=== PATIENT | female | born 1975 | race Caucasian/White ===

== ENCOUNTER 2019-12-29 16:35 | Observation (INO) | payer BC ==
[~2019-12-29] VITALS: Ht 167.6 cm; Wt 84.1 kg
[2019-12-29] MEDS ORDERED: CALCIUM (16:38)
[2019-12-29] MEDS ORDERED: ASPIRIN81 MG PO (16:38)
[2019-12-29] MEDS ORDERED: ZOLOFT50 MG PO (16:39)
[2019-12-29 17:02] LABS: BASOPHILS 0.3 % (0-2); EOSINOPHILS 3.5 % (0-7); HEMATOCRIT 43.8 % (36.0-48.0); IMMATURE GRANULOCYTES 0.5 % (0-5); LYMPHOCYTES 20.7 % (15-50); MCH 32.7 pg (26.0-34.0); MCV 102.3 fL (80.0-100.0); MEAN PLATELET VOLUME 9.2 fL (7.4-10.4); MONOCYTES 6.9 % (2-11); NEUTROPHILS 68.1 % (40-80); PLATELET COUNT 188 10x3/uL (130-400); RBC 4.28 10x6/uL (4.00-5.40); RDW 13.8 % (11.5-14.5); WBC 7.9 10x3/uL (4.8-10.8)
[2019-12-29 17:16] LABS: APTT 24.9 SECONDS (22.8-39.4); INR 0.93 (0.85-1.17); PROTIME 12.4 SECONDS (11.6-15.0)
[2019-12-29 17:17] LABS: CALC OSMOLALITY 272 mosm/kg (275-300); CALCIUM 8.6 mg/dL (8.5-10.1); CARBON DIOXIDE 24.7 mmol/L (21.0-32.0); CHLORIDE - SERUM 102 mmol/L (98-107); CREATININE - SERUM 0.8 mg/dL (0.6-1.3); GLUCOSE 107 mg/dL (74-106); POTASSIUM - SERUM 3.7 mmol/L (3.5-5.1); SODIUM 137 mmol/L (136-145); UREA NITROGEN 10 mg/dL (7-18); eGFR NON AFRICAN AMERICAN 82 mL/min (90-120)
[2019-12-29 17:23] LABS: ALBUMIN 3.6 g/dL (3.4-5.0); ALKALINE PHOSPHATASE 42 U/L (30-120); ALT (SGPT) 25 U/L (10-68); BILIRUBIN - TOTAL 0.24 mg/dL (0.2-1.3); PROTEIN - SERUM 6.5 g/dL (6.4-8.2)
--- NOTE | 2019-12-29 19:42 | NUR ---
PATIENT RESTING IN BED WITH AT BEDSIDE. PLACED ICE PACK TO LEFT ANKLE. PATIENT REQUESTED PAIN MEDS WHEN AVAILABLE AND DENIES OTHER NEEDS AT THIS TIME. BED IN LOWEST POSITION AND CALL LIGHT WITHIN REACH. ENCOURAGED THE PATIENT TO CALL IF SHE HAS NEEDS. WILL CONTINUE TO MONITOR.
[2019-12-30 02:06] VITALS: Ht 167.6 cm; Wt 84.1 kg
[2019-12-30] MEDS ORDERED: MERIBIN5 MG PO (02:15)
[2019-12-30 03:24] VITALS: BP 94/38
[2019-12-30 05:40] LABS: BASOPHILS 0.1 % (0-2); EOSINOPHILS 3.4 % (0-7); HEMATOCRIT 43.4 % (36.0-48.0); HEMOGLOBIN 13.8 g/dL (12-16); IMMATURE GRANULOCYTES 0.5 % (0-5); LYMPHOCYTES 16.6 % (15-50); MCH 33.1 pg (26.0-34.0); MCHC 31.8 g/dL (31.0-37.0); MCV 104.1 fL (80.0-100.0); MEAN PLATELET VOLUME 9.9 fL (7.4-10.4); MONOCYTES 9.5 % (2-11); NEUTROPHILS 69.9 % (40-80); PLATELET COUNT 201 10x3/uL (130-400); RBC 4.17 10x6/uL (4.00-5.40); RDW 13.9 % (11.5-14.5); WBC 9.5 10x3/uL (4.8-10.8)
[2019-12-30 06:02] LABS: ALBUMIN 3.2 g/dL (3.4-5.0); ANION GAP 12.3 mmol/L (8-16); BILIRUBIN - TOTAL 0.17 mg/dL (0.2-1.3); CALCIUM 7.6 mg/dL (8.5-10.1); CARBON DIOXIDE 25.8 mmol/L (21.0-32.0); CREATININE - SERUM 0.9 mg/dL (0.6-1.3); POTASSIUM - SERUM 4.1 mmol/L (3.5-5.1); PROTEIN - SERUM 5.9 g/dL (6.4-8.2)
[2019-12-30 06:40] VITALS: BP 147/93
[2019-12-30 08:49] LABS: HCG URINE NEGATIVE (NEGATIVE)
[2019-12-30 09:22] VITALS: BP 128/90
[2019-12-30] MEDS ORDERED: PERCOCET 10-321 EAC1 PO (10:05)
[2019-12-30] MEDS ORDERED: ZOFRAN ODT4 MG/UDTAB PO (10:06)
[2019-12-30] MEDS ORDERED: BAYER CHEWABLE81 MG PO (10:06)
[2019-12-30] MEDS ORDERED: VISTARIL50 MG PO (10:06)
[2019-12-30 11:03] VITALS: BP 141/94
--- NOTE | 2019-12-30 11:09 | OP ---
PATIENT NAME: EZ HEADLEY MEDICAL RECORD: [id number] :73 LOCATION:[id number] ADMISSION DATE:12/29/19 SURGEON: SHREYAS SHEEHAN DO DATE OF OPERATION: 12/30/2019 PROCEDURE PERFORMED: Left ankle open reduction internal fixation. PREOPERATIVE DIAGNOSIS: Left ankle fracture. POSTOPERATIVE DIAGNOSIS: Left ankle fracture. INDICATIONS: Ms. Headley is a 44-year-old female who stepped into a hole while carrying items yesterday, turned to her ankle and sustained an ankle fracture. She was brought to the ER. She could not bear weight, and saw a Daniels C type fracture with lateral subluxation of the talus. Informed her we could fix here or she could have it done when she got home. She said she wanted it done here and would be going home today. I informed her of the risks including damage to nerves and vessels in the area, specifically the superficial peroneal nerve that had innervated the top of the foot or dorsal side of the foot, in between first and second toes, blood clots, bleeding, malunion, nonunion, need for further surgery, failure of hardware. She is okay with all that and signed the consent. SURGEON: Shreyas Sheehan DO DESCRIPTION OF PROCEDURE: The patient was taken to the operative suite after given block by anesthesia in the preoperative area, laid in supine position, given general anesthetic and intubated. She was given 2 grams of Ancef. The left lower extremity was prepped and draped in sterile fashion. Timeout was performed. Everyone was in agreement with the correct site, side, patient, and procedure. I then began by exsanguinating the left lower extremity. The tourniquet was inflated to 350 mmHg and was up for 26 minutes. We then began by making an incision over the lateral aspect of the ankle. Careful dissection was made down to the fibula fracture. Fracture site was cleaned out, clamped together and put a 6-hole Ivett stainless steel locking plate on the ankle and once it was in good position on x-ray in AP and lateral, it had been pinned into place, I then proceeded by locking distally first, put 4 distal locking screws in and then 2 shaft screws and 1 locking screw in the most proximal hole. Due to the injury, I saw some medial clear space widening on the mortise view, I clamped the ankle and with it dorsiflexed and then put across the ZipTight syndesmotic fixation button and cinched it down. I then released the clamp and tested it and it did not have any clear space widening on the mortise view. AP, lateral and mortise were then taken and the plate was in good position and the fracture fixed very well. The tourniquet was then let down. Any bleeding was coagulated with a pickup and Bovie. We then irrigated the site and then closed it with a 2-0 Vicryl on the skin in interrupted fashion. It was done by myself and Josie Xavier, certified surgical services director student, and then we cleaned the skin, put Cavilon around the incision and put on a ZipLine and cinched it down to hold the incision together. She was then dressed with Adaptic, 4 x 4, ABD on the incision around the heel, secured with cast padding and a 4 x 30 splint was placed posteriorly and secured with Marek wrap. She was then awakened and taken to recovery in stable condition. BLOOD LOSS: Minimal. OPERATIVE REPORT [id number] EZ HEADLEY COMPLICATIONS: None. TRANSINT:[id number] Voice Confirmation ID: [id number] DOCUMENT ID: [id number] SHREYAS SHEEHAN DO at 1109 CC: [id number] DICTATION DATE: 12/30/19 1011 COOK HOUSE LABORER: 12/30/19 1031 ADM IN [facility] [address] [id number]
--- NOTE | 2019-12-30 14:23 | MORECARE ---
CASE MANAGEMENT DISCHARGE SUMMARY PATIENT: EZ BERNABE UNIT: [id number] ADM DATE: 12/29/19 AGE: 44 : [birth year] SEX: F ROOM/BED: D.2206 AUTHOR: BINTA HYMAN PHYSICIAN: REFERRING PHYSICIAN: DANY HU MD DATE OF SERVICE: 12/30/19 Discharge Plan Patient Name: EZ BERNABE Facility: [facility]:[place] : 1975 Planned Disposition: Home Anticipated Discharge Date: Discharge Date: Expected LOS: Initial Reviewer: [email or web address] Initial Review Date: 12/29/2019 Generated: 12/30/19 3:22 pm Comments DCP- Discharge Planning Updated by [email or web address]: Kristen Shin on 12/30/19 1:[address] Patient Name: EZ BERNABE Admission Status: ER Accout number: [id number] Admission Date: 12-29-2019 : 1975 Admission Diagnosis: Attending: BUD HU Current LOS: 1 Anticipated DC Date: Planned Disposition: Home Primary Insurance: [employer] OUT OF STATE Discharge Planning Comments: CM met with patient to complete initial dc planning assessment. CM educated patient on the CM role and verbal consent given by patient to complete assessment. CM discussed availability of home health, rehab services, and medical equipment. PATIENT WILL NEED CRUTCHES FOR DC. SPOKE WITH PATIENT AND HER IS PICKING UP HER MEDS AND CRUTCHES. CM will continue to follow and assist as needed. Fitter Helper: Kristen Shin Patient Name: EZ BERNABE Page [id number] at 1423 All edits/amendments must be made on the electronic document DICTATION DATE: 12/30/19 1423 ROUTER SETTER: JOSHUA 12/30/19 1423 RPT#: [id number] DC DATE: STATUS: ADM IN [facility] [address] [place] [address] END OF REPORT
--- NOTE | 2019-12-31 09:36 | MORECARE ---
CASE MANAGEMENT DISCHARGE SUMMARY PATIENT: EZ BERNABE UNIT: [id number] ADM DATE: 12/29/19 AGE: 44 : [birth year] SEX: F ROOM/BED: D.2206 AUTHOR: BINTA HYMAN PHYSICIAN: REFERRING PHYSICIAN: DANY HU MD DATE OF SERVICE: 12/31/19 Discharge Plan Patient Name: EZ BERNABE Facility: [facility]:[place] : 1975 Planned Disposition: Home Anticipated Discharge Date: Discharge Date: 12/30/2019 Expected LOS: Initial Reviewer: [email or web address] Initial Review Date: 12/29/2019 Generated: 12/31/19 10:36 am Comments DCP- Discharge Planning Updated by [email or web address]: Kristen Shin on 12/30/19 1:[address] Patient Name: EZ BERNABE Admission Status: ER Accout number: [id number] Admission Date: 12-29-2019 : 1975 Admission Diagnosis: Attending: BUD HU Current LOS: 1 Anticipated DC Date: Planned Disposition: Home Primary Insurance: [employer] OUT OF STATE Discharge Planning Comments: CM met with patient to complete initial dc planning assessment. CM educated patient on the CM role and verbal consent given by patient to complete assessment. CM discussed availability of home health, rehab services, and medical equipment. PATIENT WILL NEED CRUTCHES FOR DC. SPOKE WITH PATIENT AND HER IS PICKING UP HER MEDS AND CRUTCHES. CM will continue to follow and assist as needed. Electrical Maintenance Engineer: Kristen Shin Last DP export: 12/30/19 1:23 pm Patient Name: EZ BERNABE Page [id number] at 0936 All edits/amendments must be made on the electronic document DICTATION DATE: 12/31/19935 LOAN OPERATIONS SPECIALIST: JOSHUA 12/31/19935 RPT#: [id number] DC DATE:12/30/19 STATUS: DIS IN [facility] [address] [place] [address] END OF REPORT
== END 2019-12-30 17:14 | disposition home or self-care (01) ==
LOC: D.ER 16:35 → D.MS 17:57 → OBSVTIME 17:57 → D.MS 12-30 17:14
PROVIDERS: Anesthesiology; Family Medicine; ADMIT Emergency Medicine; ATTEND Emergency Medicine
DX: S82.842A Displaced bimalleolar fracture of left lower leg, initial encounter for closed fracture (principal); W18.42XA Slipping, tripping and stumbling without falling due to stepping into hole or opening, initial encounter; Y93.9 Activity, unspecified; Y92.9 Unspecified place or not applicable; M25.572 Pain in left ankle and joints of left foot